=== PATIENT | female | born 1935 | race Caucasian/White ===

== ENCOUNTER 2016-11-06 10:23 | Observation (INO) ==
[2016-11-06] MEDS ORDERED: Ondansetron 4 MG/2 ML VIAL IVP PRN (12:56)
[2016-11-06] MEDS ORDERED: Naloxone 0.4 MG/ML INJ IVP PRN (12:56)
--- NOTE | 2016-11-06 13:08 | Orthopedic History & Physical ---
Date of Encounter: 11/06/16 Time of Encounter: 13:06 Assessment and Plan (1) Fracture of neck of left humerus Current visit: Yes Status: Acute Patient's xrays reviewed, discussed with : Moderately displaced oblique fracture through the surgical neck of the left humerus. Severe degenerative change at the left glenohumeral joint. Unchanged nonspecific elevation of the right hemidiaphragm, with mild bibasilar atelectasis. Because of her displaced fracture and significant arthritis, along with her continued pain and immobility, surgical optimization recommended. Plan for Left Total Shoulder Replacement, reverse ball and socket with on 06/26. Pain control, DVT prophylaxis. Placed in sling, with no ROM of shoulder. Encouraged gentle hand and wrist movement for swelling management. ICE and elevate. Hospitalist and cardiac consultation for pre-operative optimization. Qualifiers: Encounter type: initial encounter Fracture type: closed Qualified Code(s) : S42.212A - Unspecified displaced fracture of surgical neck of left humerus, initial encounter for closed fracture (2) HTN (hypertension) Current visit: Yes Status: Chronic Qualifiers: Hypertension type: essential hypertension Qualified Code(s): I10 - Essential (primary) hypertension (3) DMII (diabetes mellitus, type 2) Current visit: Yes Status: Chronic Qualifiers: Diabetes mellitus complication status: with unspecified complications Diabetes mellitus emt intermediate insulin use: unspecified emt intermediate insulin use status Qualified Code(s): E11.8 - Type 2 diabetes mellitus with unspecified complications (4) CAD (coronary artery disease) Current visit: Yes Status: Chronic Qualifiers: Coronary Disease-Associated Artery/Lesion type: unspecified vessel or lesion type [place] vs. transplanted heart: unspecified whether [place] or transplanted heart Associated angina: angina presence unspecified Qualified Code(s): I25.10 - Atherosclerotic heart disease of [place] coronary artery without angina pectoris (5) History of heart bypass surgery Current visit: Yes Status: Chronic Obtaining cardiac clearance prior to surgery. History of Present Illness Chief complaint: Fall HPI: Ms. Buenrostro is a 81 year old female, was seen in clinic c/o left arm pain after a fall on 11/03/16. Pt states she fell getting out of her chair. She was sleeping and thought she had children in the house. She jumped up to get the kids and she fell. She was brought to the hospital in the squad. Xrays showed a humerus fx. They gave her a sling. Has pain and bruising. Limited ROM at shoulder. H/o left shoulder pain and limited ROM. She has arthritis. H/o Right TSR years ago at [facility]. Medical history: significant cardiac history - history of bypass at [facility] 3 years ago. DMII, HTN, Asthma, Parox. A.fib, CAD Past Med Surg Social Fam HX - Past Medical History Medical history: diabetes, hyperlipidemia, hypertension, thyroid disease Psychiatric history: no psych history - Past Surgical History Surgical History: coronary bypass (CABG) - Social History Smoking Status: Never smoker Smokeless Tobacco Status: No Alcohol use: rarely Drug use: none - Family History Son Hx Family Endocrine Disorder: Yes Daughter Hx Family Cancer: Yes Medications and Allergies HYDROcodone/Acet 5/325 mg [[place] 5-325 mg] 1 tab PO Q4H PRN #30 tab 11/03/16 [Rx ] Ondansetron ODT [Zofran ODT] 4 mg PO Q4HR #30 tab.rapdis 11/03/16 [Rx] Allergies No Known Allergies Allergy (Verified 11/03/16 18:57) All Systems Reviewed: A 10-system review of systems was performed and is negative for pertinent findings except as documented above in the HPI. Physical Exam - Shoulder left Appearance shoulder: ecchymosis, swelling Effusion grade shoulder exam: No Tenderness w/ palpation shoulder: anterior, posterior, superior Pain with motion: Yes ROM: abduction: abnormal ROM: forward flexion: abnormal ROM: extension: abnormal ROM: adduction: abnormal ROM: internal rotation: abnormal ROM: external rotation: abnormal Results - Labs Labs: Abnormal lab results POC Glucose 227 (58-89) H 11/06/16 12:35 All other labs normal. - Diagnostic results Shoulder x-ray: report reviewed, image reviewed
--- NOTE | 2016-11-06 14:24 | Internal Medicine Consult Note ---
Date of Encounter: 11/06/16 Time of Encounter: 14:20 - Assessment and Plan (1) Fracture of neck of left humerus Current Visit: Yes Status: Acute Assessment and plan: possible surgery on thrusday. management as per ortho. she has a moderate cardio- pulm risk for an intermediate risk procedure given her extensive cardiac history and her other co morbids, pending cardio consultation for any further recommendation. will follow the patient along with you, thank you for consulting hospitalist service. Qualifiers: Encounter type: initial encounter Fracture type: closed Qualified Code(s) : S42.212A - Unspecified displaced fracture of surgical neck of left humerus, initial encounter for closed fracture (2) Atrial fibrillation Current Visit: Yes Status: Acute Assessment and plan: will continue home meds, she says that she is not in any blood thinners. 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 She is not in RVR at this time Qualifiers: Atrial fibrillation type: paroxysmal Qualified Code(s): I48.0 - Paroxysmal atrial fibrillation (3) DMII (diabetes mellitus, type 2) Current Visit: Yes Status: Chronic Assessment and plan: she takes 10 units of Lantus at night and metformin during the day. Will hold the metformin at this time, continue nighttime Lantus and will continue sliding scale Humalog. Monitor fingersticks every 6. 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 Qualifiers: Hypertension type: essential hypertension Qualified Code(s): I10 - Essential (primary) hypertension (5) CAD (coronary artery disease) Current Visit: Yes Status: Chronic Assessment and plan: History of bypass surgery at [facility] 3 years ago. Follows with cardiology at the same place. Denies any chest pain or shortness of breath, cardiology has been consulted. follow recommendations. Qualifiers: Coronary Disease-Associated Artery/Lesion type: unspecified vessel or lesion type [place] vs. transplanted heart: unspecified whether [place] or transplanted heart Associated angina: angina presence unspecified Qualified Code(s): I25.10 - Atherosclerotic heart disease of [place] coronary artery without angina pectoris (6) History of heart bypass surgery Current Visit: Yes Status: Chronic Internal Medicine - CN: HPI - Data of Consult Patient: new to practice Requesting Physician: Jae Randolph MD - Consult Narrative History of present illness: Ms. Buenrostro is a 81 year old female was seen in clinic c/o left arm pain after a fall on 11/03/16. Pt states she fell getting out of her chair. She was sleeping and thought she had children in the house. She jumped up to get the kids and she fell. She was brought to the hospital in the squad. Xrays showed a humerus fx. They gave her a sling. Has pain and bruising. Limited ROM at shoulder. H/o left shoulder pain and limited ROM. She has arthritis. H/o Right TSR years ago at [facility]. Medical history: significant cardiac history - history of bypass at [facility] 3 years ago. DMII, HTN, Parox. A.fib, CAD. Past Med Surg Social Fam HX - Past Medical History Medical history: diabetes, hyperlipidemia, hypertension, thyroid disease Psychiatric history: no psych history - Past Surgical History Surgical History: coronary bypass (CABG) - Social History Smoking Status: Never smoker Smokeless Tobacco Status: No Alcohol use: rarely Drug use: none - Family History Son Hx Family Endocrine Disorder: Yes Daughter Hx Family Cancer: Yes - Constitutional Constitutional: as per HPI - EENT Eyes: as per HPI Ears: as per HPI Nose, mouth and throat: as per HPI - Breasts Breasts: as per HPI - Cardiovascular Cardiovascular ROS IM: as per HPI - Gastrointestinal Gastrointestinal: as per HPI Internal Medicine - CN: Meds Allergies No Known Allergies Allergy (Verified 11/03/16 18:57) Internal Medicine - CN: Exam - Constitutional Vitals: Temp Pulse Resp BP Pulse Ox 97.8 F 90 16 118/70 93 11/06/16 13:51 11/06/16 13:51 11/06/16 13:51 11/06/16 13:51 11/06/16 13:51 General appearance IM: Present: A&O X 3, no acute distress Exam: neck- supple chest- b/l clear, no added sounds CVS-s1 and s2, no mr//g abd-soft, non tender, bs are present ext- no edema, left arm on sling, able to move her fingers, sensation intact, ROM decreased. Internal Medicine - CN: Reslt - Impressions Impressions Chest X-Ray 11/06/16 12:20 IMPRESSION: No acute abnormality. Stable chronic right hemidiaphragm elevation. D/ / 11/06/2016 13:38:28 Nicolas Almanza MD / Bailey Hartman Interpreting Provider: Nicolas Almanza MD Consult Discharge Plan - Plan Referrals: Bashir Browne MD [Primary Care Provider] -
[2016-11-06 15:04] LABS: Basophils # 0.1 K/mcL (0.0-0.2); Basophils % 0.4 %; Eosinophils % 0.2 %; Hematocrit 29.6 % (35.3-44.9); Hemoglobin 9.2 g/dL (11.5-15.4); Immature Granulocytes % 0.8 % (0-4); Lymphocytes # 1.1 K/mcL (0.6-4.6); Lymphocytes % 6.1 %; Mean Corpuscular HGB Conc 31.1 g/dL (31.6-35.5); Mean Corpuscular Hemoglobin 26.5 pg (28.0-33.3); Mean Corpuscular Volume 85.3 fL (83.0-100.0); Mean Platelet Volume 10.8 fL (9.4-12.4); Monocytes # 1.1 K/mcL (0.0-1.3); Monocytes % 5.9 %; Neutrophils # 15.6 K/mcL (1.6-8.9); Platelet Count 425 K/mcL (140-400); Red Blood Count 3.47 M/mcL (3.82-4.97); Red Cell Distribution Width 15.9 % (11.5-14.5); Segmented Neutrophils % 86.6 %
[2016-11-06] MEDS: 0.9 % Sodium Chloride 1,000 ML IVC SCH (15:04)
[2016-11-06 15:09] LABS: INR 1.1; Prothrombin Time 12.2 Seconds (9.4-12.1)
[2016-11-06 15:19] LABS: Calcium 9.5 mg/dL (8.6-10.8)
[2016-11-06] MEDS ORDERED: *HR* Dextrose 50 % in Water (Syg) 50 ML SYRINGE IVP PRN (17:02)
[2016-11-06] MEDS ORDERED: D5% in Water 1,000 ML IVC PRN (17:02)
[2016-11-06] MEDS ORDERED: Dextrose Gel 15 GM PO PRN ×2 (17:02)
[2016-11-06 17:07] LABS: Bilirubin,Urine Negative (Negative); Blood,Urine Trace (Negative); Clarity,Urine Cloudy (Clear); Color,Urine Yellow (Yellow); Glucose,Urine (UA) 250 mg/dL (Normal); Ketones,Urine Trace mg/dL (Negative); Leukocyte Esterase,Urine Negative (Negative); Nitrite,Urine Negative (Negative); PH,Urine 5.5 pH Units (5.0-8.0); Protein,Urine 100 mg/dL (Neg-Trace); Specific Gravity,Urine 1.018 (1.010-1.025); Urobilinogen,Urine Normal (Normal)
[2016-11-06 17:10] LABS: Hyaline Casts,Urine None Seen per lpf (None-Few); RBC,Urine 0-3 per hpf (0-3); Squamous Epithelial Cell,Urine Moderate per lpf (None-Few); WBC,Urine 0-3 per hpf (0-3)
[2016-11-06 17:20] LABS: Yeast,Urine Moderate per hpf (None Seen)
[2016-11-06] MEDS: Insulin LISPRO 300 UNITS/3 ML VIAL SQ SCH ×2 (17:20→21:40)
[2016-11-06 17:21] LABS: Bacteria,Urine Few per hpf (None-Few); Mucus,Urine Few (Few)
[2016-11-06] MEDS: Insulin DETEMIR 100 UNIT/ML X5UNITS SQ SCH (21:41)
[2016-11-06] MEDS: *HR* OxyCODONE Immed Rel 5 MG TABLET PO PRN (22:03)
[2016-11-07] MEDS: 0.9 % Sodium Chloride 1,000 ML IVC SCH ×2 (04:40→21:38)
[2016-11-07 05:43] LABS: Hematocrit 29.6 % (35.3-44.9); Hemoglobin 9.1 g/dL (11.5-15.4)
--- NOTE | 2016-11-07 07:47 | Orthopedics Progress Note ---
Date of Encounter: 11/07/16 Time of Encounter: 07:45 Subjective Interval history: Patient with a significant displaced left proximal humerus fracture. Patient resting comfortably. Awaiting medical clearance. Plan is for a left total shoulder replacement. X-rays reviewed and show significant arthritic changes with a displaced fracture of the proximal humerus. We reviewed the risks and benefits as well as recovery. All questions were answered. Objective Vital signs: Vital Signs Temp Pulse Resp BP Pulse Ox 11/07/16 03:20 98.1 F 92 14 146/65 91 11/07/16 00:04 98.4 F 74 14 168/74 92 11/06/16 19:19 98.0 F 88 14 170/91 95 11/06/16 15:45 98.0 F 90 14 120/73 93 11/06/16 13:51 97.8 F 90 16 118/70 93 Intake and Output 11/06/16 11/06/16 11/07/16 15:59 23:59 07:59 Intake Total 590 / 590 360 / 360 1720 / 1720 Output Total 0 / 0 425 / 425 0 / 0 Balance 590 / 590 -65 / -65 1720 / 1720 Intake: IV Fluids 1000 / 1000 0.9 % Sodium Chloride 1, 1000 / 1000 000 ML @ 75 mls/hr IVC . [id number] ARABELLA Rx#: [id number] Oral 590 / 590 360 / 360 720 / 720 Output: Urine 0 / 0 425 / 425 0 / 0 Other: Meal water pitcher Dinner Percent of Meal Consumed 100% 75% Weight 58.2 kg 58.2 kg Blood Glucose* 227 158 Patient Weight 11/07/16 23:59 Weight 58.2 kg - Labs CBC & BMP: 11/07/16 05:30 11/06/16 14:45 Labs: Abnormal lab results WBC 18.0 K/mcL (4.3-11.1) H 11/06/16 14:45 RBC 3.47 M/mcL (3.82-4.97) L 11/06/16 14:45 Hgb 9.1 g/dL (11.5-15.4) L 11/07/16 05:30 Hct 29.6 % (35.3-44.9) L 11/07/16 05:30 MCH 26.5 pg (28.0-33.3) L 11/06/16 14:45 MCHC 31.1 g/dL (31.6-35.5) L 11/06/16 14:45 RDW 15.9 % (11.5-14.5) H 11/06/16 14:45 Plt Count 425 K/mcL (140-400) H 11/06/16 14:45 Neutrophils # 15.6 K/mcL (1.6-8.9) H 11/06/16 14:45 PT 12.2 Seconds (9.4-12.1) H 11/06/16 14:45 Sodium 132 mEq/L (136-145) L 11/06/16 14:45 Chloride 92 mEq/L (98-109) L 11/06/16 14:45 Carbon Dioxide 30 mEq/L (19-29) H 11/06/16 14:45 BUN 21 mg/dL (7-20) H 11/06/16 14:45 Creatinine 1.54 mg/dL (0.57-1.11) H 11/06/16 14:45 Est GFR ( Amer) 39 (> 60) L 11/06/16 14:45 Est GFR (Non-Af Amer) 32 (> 60) L 11/06/16 14:45 Glucose 341 mg/dL (70-99) H 11/06/16 14:45 POC Glucose 158 (58-89) H 11/06/16 21:31 Urine Clarity Cloudy (Clear) A 11/06/16 16:54 Urine Protein 100 mg/dL (Neg-Trace) H 11/06/16 16:54 Urine Glucose (UA) 250 mg/dL (Normal) H 11/06/16 16:54 Urine Ketones Trace mg/dL (Negative) H 11/06/16 16:54 Urine Blood Trace (Negative) H 11/06/16 16:54 Ur Squamous Epith Cells Moderate per lpf (None-Few) H 11/06/16 16:54 Urine Yeast Moderate per hpf (None Seen) H 11/06/16 16:54 Antibody Screen POSITIVE A 11/06/16 14:45 Consult Discharge Plan - Plan Referrals: Bashir Browne MD [Primary Care Provider] -
[2016-11-07] MEDS ORDERED: Budesonide/Formoterol 160/4.5 MDI IH PRN (07:58)
[2016-11-07] MEDS ORDERED: Nitroglycerin 0.4 MG TAB.SUBL SL PRN (07:58)
[2016-11-07] MEDS ORDERED: NON-FORMULARY MEDICATION 1 EACH EACH (Acetaminophen/Diphenhydramine [Acetaminophen Pm Capl PO PRN (07:58)
[2016-11-07] MEDS ORDERED: CloNIDine Patch 0.1 MG PATCH (WEEKLY) TD SCH (08:00)
[2016-11-07] MEDS: Insulin LISPRO 300 UNITS/3 ML VIAL SQ SCH ×4 (08:04→21:28)
[2016-11-07] MEDS ORDERED: Acetaminophen 325 MG TABLET PO PRN (08:10)
[2016-11-07] MEDS: Metoprolol 100 MG TABLET PO SCH ×2 (08:22→21:40)
[2016-11-07] MEDS: Bumetanide 1 MG TABLET PO SCH (08:22)
[2016-11-07] MEDS: Lisinopril 20 MG TABLET PO SCH (08:22)
[2016-11-07] MEDS: Aspirin Enteric Coated 81 MG Tablet PO SCH (08:23)
[2016-11-07] MEDS: Gabapentin 300 MG CAPSULE PO SCH ×3 (08:23→21:39)
[2016-11-07 08:51] LABS: Basophils # 0.1 K/mcL (0.0-0.2); Basophils % 0.3 %; Eosinophils # 0.2 K/mcL (0.0-0.6); Eosinophils % 1.2 %; Immature Granulocytes % 0.5 % (0-4); Lymphocytes # 1.3 K/mcL (0.6-4.6); Lymphocytes % 8.3 %; Mean Corpuscular HGB Conc 30.4 g/dL (31.6-35.5); Mean Corpuscular Hemoglobin 26.2 pg (28.0-33.3); Mean Corpuscular Volume 86.3 fL (83.0-100.0); Mean Platelet Volume 11.1 fL (9.4-12.4); Monocytes # 1.4 K/mcL (0.0-1.3); Monocytes % 9.2 %; Neutrophils # 12.1 K/mcL (1.6-8.9); Platelet Count 464 K/mcL (140-400); Red Blood Count 3.51 M/mcL (3.82-4.97); Red Cell Distribution Width 16.1 % (11.5-14.5); Segmented Neutrophils % 80.5 %
[2016-11-07 09:01] LABS: BUN/Creatinine Ratio 18 (6-26); Blood Urea Nitrogen 19 mg/dL (7-20); Calcium 9.7 mg/dL (8.6-10.8); Carbon Dioxide 30 mEq/L (19-29); Chloride 99 mEq/L (98-109); Glucose 97 mg/dL (70-99); Osmolality,Calculated 286 (280-300); Sodium 137 mEq/L (136-145); eGFR For African Americans > 60 (> 60); eGFR For Non-African Americans 50 (> 60)
--- NOTE | 2016-11-07 09:44 | Cardiology Consult Note ---
Date of Encounter: 11/07/16 Time of Encounter: 09:30 Assessment and Plan (1) Pre-operative cardiovascular examination Current Visit: Yes Status: Acute Plan for left total shoulder replacement 11/08/[address] Randolph under general anesthesia. Hx of CABG 11/[address] 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 Denies additional testing including TTE, stress, LHC since bypass. Denies symptoms including chest pain or discomfort, dyspnea, or activity intolerance. She is fairly active, cares for self, lives at home alone. Utilizes walker. ECG reviewed, ST 110, no acute ischemic changes noted. Recommend obtaining echocardiogram to evaluate structure and function; if no significant abnormalities described, she is an acceptable risk candidate from cardiovascular standpoint to proceed with moderate risk surgery. Recommend continuation of asa and betablocker if able. Will further discuss and review with Dr. Bacon. (2) Fracture of neck of left humerus Current Visit: Yes Status: Acute Plan for left total shoulder in AM with Dr. Randolph. Qualifiers: Encounter type: initial encounter Fracture type: closed Qualified Code(s) : S42.212A - Unspecified displaced fracture of surgical neck of left humerus, initial encounter for closed fracture (3) CAD (coronary artery disease) Current Visit: Yes Status: Chronic Hx of 3v CABG (11/2013) at [facility]. GROVES-LAD, SVG-Diag, SVG-Om. Qualifiers: Coronary Disease-Associated Artery/Lesion type: [place] artery [place] vs. transplanted heart: [place] heart Associated angina: without angina Qualified Code(s): I25.10 - Atherosclerotic heart disease of [place] coronary artery without angina pectoris Discussion w patient/family: The assessment and plan as outlined above was discussed with the patient and/or family members who expressed understanding and agreement. All questions were answered. Thank you for involving us in the care of your patient. Please call with any questions. The patient will be discussed and reviewed with Dr. Bacon; changes to be made accordingly. History of Present Illness Consult date: 11/06/16 Requesting physician: Sameera Martell Consult reason: pre-op Chief complaint: fall, left shoulder fx History of present illness: Ms. Buenrostro is a 81 year old female with PMH significant for CAD s/p CABG (2013), post-operative PAF, hypothyroidism, HTN, and HLD who presented to [facility] ED after mechanical fall at home yesterday. Patient states she fell asleep in recliner, thought her grandchildren were there and stood up but tripped over house slipper and fell on left side resulting in significant proximal humerus fracture. Routinely follows with [facility] as outpatient, Dr. Varela. Past Med Surg Social Fam HX - Past Medical History Medical history: atrial fibrillation (post-operative PAF. ), coronary artery disease, diabetes, hyperlipidemia, hypertension, thyroid disease Psychiatric history: no psych history - Past Surgical History Surgical History: coronary bypass (CABG) - Social History Smoking Status: Never smoker Smokeless Tobacco Status: No Alcohol use: rarely Drug use: none Current living situation: Home - Independent Activity Level: Independent ambulation, Uses cane/walker - Family History Son Hx Family Endocrine Disorder: Yes Daughter Hx Family Cancer: Yes Medications and Allergies Acetaminophen/Diphenhydramine [Acetaminophen Pm Caplet] 2 each PO HS PRN [History] Albuterol Sulfate [Albuterol Inhaler] 2 puff IH Q4H PRN 11/06/16 [History] Ammonium Lactate [Tammy-Hydrolac] 1 appl TP BID PRN 11/06/16 [History] Aspirin Enteric Coated [Aspirin EC] 81 mg PO DAILY 11/06/16 [History] Bumetanide [Bumex] 1 mg PO DAILY 11/06/16 [History] Celecoxib [Celebrex] 200 mg PO DAILY 11/06/16 [History] CloNIDine [Catapres-Tts 1] 1 each TD QWEEK 11/06/16 [History] DULoxetine [Cymbalta] 40 mg PO DAILY 11/06/16 [History] Felodipine [Felodipine ER] 10 mg PO DAILY 11/06/16 [History] Ferrous Sulfate 325 mg PO BIDWM 11/06/16 [History] Fluticasone/Salmeterol [Advair 250-50 Diskus] 1 each IH BID PRN 11/06/16 [ History] Gabapentin [Neurontin] 600 mg PO TID 11/06/16 [History] HYDROcodone/Acet 5/325 mg [[place] 5-325 mg] 1 tab PO Q4H PRN 11/06/16 [History] Insulin Glargine,Hum.rec.anlog [Lantus Solostar] 10 unit SQ HS 11/06/16 [History ] Levothyroxine [Levothyroxine Sodium] 137 mcg PO DAILY@0630 11/06/16 [History] Lisinopril [Zestril] 20 mg PO DAILY 11/06/16 [History] Metoprolol [Lopressor] 100 mg PO BID 11/06/16 [History] Montelukast [Singulair] 10 mg PO DAILY 11/06/16 [History] Nitroglycerin [Nitrostat] 0.4 mg SL Q5M PRN 11/06/16 [History] Ondansetron ODT [Zofran ODT] 4 mg SL Q4HR PRN 11/06/16 [History] Pantoprazole Sodium [Protonix] 20 mg PO DAILY 11/06/16 [History] Rosuvastatin [Crestor] 40 mg PO HS 11/06/16 [History] metFORMIN [Glucophage] 850 mg PO BIDWM 11/06/16 [History] Allergies No Known Allergies Allergy (Verified 11/03/16 18:57) All Systems Review: A 10-system review of systems was performed and is negative for pertinent findings except as documented above in the HPI. - Cardiovascular Cardiovascular: as per HPI - Musculoskeletal Musculoskeletal: other (as per HPI) Physical Examination Vital Signs, Last 4 Hours Temp Pulse Resp BP Pulse Ox 11/07/16 07:54 98.5 F 72 16 181/74 98 General: Conversant, No Apparent Distress HEENT: Atraumatic, Normocephaly, Other (mild ecchymosis to left orbit) Cardiac: Reg Rate and Rhythm (tachycardiac) Lungs: Normal Breath Sounds Neuro: Alert and responsive Abdomen: Soft Skin: No rashes noted on visualized skin Musculoskeletal: No Chest Wall Tenderness, Other (left shoulder pain/tenderness- -in sling. Large ecchymosis at site. ) Extremities: No Edema, Normal Pulses Results 11/07/16 05:30 11/07/16 05:30 Lab Results 11/06/16 11/06/16 11/06/16 14:45 14:45 14:45 WBC 18.0 H Hgb 9.2 L Hct 29.6 L Plt Count 425 H INR 1.1 Sodium 132 L Potassium 4.0 Chloride 92 L Carbon Dioxide 30 H BUN 21 H Creatinine 1.54 H Glucose 341 H Calcium 9.5 05/31/17 05/31/17 05:30 05:30 WBC 15.0 H Hgb 9.1 L Hct 29.6 L Plt Count 464 H INR Sodium 137 Potassium 4.0 Chloride 99 Carbon Dioxide 30 H BUN 19 Creatinine 1.06 Glucose 97 Calcium 9.7 Active Medications Acetaminophen (Tylenol) 650 mg PO HS PRN PRN Reason: Sleep Stop: 05/09/17 08:11 Albuterol Sulfate (Albuterol Inhaler) 2 puff IH Q4H PRN PRN Reason: Shortness Of Breath Stop: 05/09/17 07:59 Aspirin (Aspirin Ec) 81 mg PO DAILY [facility] Stop: 05/09/17 09:01 Last Admin: 11/07/16 08:23 Dose: 81 mg Budesonide/Formoterol Fumarate (Symbicort) 2 puff IH BID PRN PRN Reason: Shortness Of Breath Bumetanide (Bumex) 1 mg PO DAILY [facility] Stop: 05/09/17 09:01 Last Admin: 11/07/16 08:22 Dose: 1 mg Clonidine HCl (Catapres-Tts) 0.1 mg TD QWEEK [facility] Stop: 05/09/17 08:01 Last Admin: 11/07/16 10:18 Dose: 0.1 mg Dextrose/Water (Dextrose 50% (Syg)) 25 ml IVP AD PRN PRN Reason: Hypoglycemia Stop: 05/08/17 17:03 Diphenhydramine HCl (Benadryl) 25 mg PO HS PRN PRN Reason: Sleep Stop: 05/09/17 08:12 Docusate Sodium (Colace) 100 mg PO BID PRN PRN Reason: Constipation Stop: 05/08/17 12:57 Duloxetine HCl (Cymbalta) 40 mg PO DAILY [facility] Stop: 05/09/17 09:01 Last Admin: 11/07/16 10:18 Dose: 40 mg Ferrous Sulfate (Ferrous Sulfate) 325 mg PO BIDWM ARABELLA Stop: 05/09/17 08:01 Last Admin: 11/07/16 08:22 Dose: 325 mg Gabapentin (Neurontin) 600 mg PO TID ARABELLA Stop: 05/09/17 09:01 Last Admin: 11/07/16 08:23 Dose: 600 mg Glucagon (Glucagen) 1 mg IM ONCE PRN PRN Reason: Hypoglycemia Stop: 05/08/17 17:03 Glucose (Gluctose) 15 gm PO ONCE PRN PRN Reason: Hypoglycemia Stop: 05/08/17 17:03 Glucose (Gluctose) 30 gm PO ONCE PRN PRN Reason: Hypoglycemia Stop: 05/08/17 17:03 Hydralazine HCl (Hydralazine) 10 mg IVP Q6HR PRN PRN Reason: Hypertension Stop: 05/09/17 08:02 Last Admin: 11/07/16 08:22 Dose: 10 mg Sodium Chloride (0.9 % Sodium Chloride) 1,000 mls @ 75 mls/hr IVC .[id number] [facility] Stop: 05/08/17 12:46 Last Admin: 11/07/16 04:40 Dose: 75 mls/hr Dextrose (Dextrose 5%) 1,000 mls @ 100 mls/hr IVC .Q10H PRN PRN Reason: HYPOGLYCEMIA Stop: 05/08/17 17:03 Insulin Detemir (Levemir) 10 unit SQ HS [facility] Stop: 05/08/17 21:01 Last Admin: 11/06/16 21:41 Dose: 10 unit Insulin Human Lispro (Humalog) 0 units SQ TIDAC [facility] PRN Reason: Protocol Stop: 05/08/17 17:16 Last Admin: 11/07/16 11:12 Dose: 6 units Insulin Human Lispro (Humalog) 0 units SQ [facility] PRN Reason: Protocol Stop: 05/08/17 21:01 Last Admin: 11/06/16 21:40 Dose: Not Given Levothyroxine Sodium (Levothyroxine Sodium) 137 mcg PO DAILY@0630 [facility] Stop: 05/10/17 06:31 Lisinopril (Zestril) 20 mg PO DAILY [facility] PRN Reason: Protocol Stop: 05/09/17 09:01 Last Admin: 11/07/16 08:22 Dose: 20 mg Metoprolol Tartrate (Lopressor) 100 mg PO BID [facility] Stop: 05/09/17 09:01 Last Admin: 11/07/16 08:22 Dose: 100 mg Montelukast Sodium (Singulair) 10 mg PO DAILY [facility] Stop: 05/09/17 09:01 Last Admin: 11/07/16 08:22 Dose: 10 mg Naloxone HCl (Narcan) 0.4 mg IVP Q2MIN PRN PRN Reason: Opioid Reversal Stop: 05/08/17 12:57 Nitroglycerin (Nitroglycerin) 0.4 mg SL Q5M PRN PRN Reason: Chest Pain Stop: 05/09/17 07:59 Omeprazole (Prilosec) 20 mg PO DAILY [facility]ABE[facility]A Stop: 05/09/17 09:01 Last Admin: 11/07/16 08:23 Dose: 20 mg Ondansetron HCl (Zofran) 4 mg IVP Q8HR PRN PRN Reason: Nausea And Vomiting Stop: 05/08/17 12:57 Oxycodone HCl (Roxicodone) 5 mg PO Q6HR PRN PRN Reason: Pain Stop: 05/08/17 12:19 Last Admin: 11/07/16 11:11 Dose: 5 mg Pharmacy Profile Note (Patient Taking Own Medication) 0 each PO DAILY ARABELLA Stop: 05/09/17 09:01 Last Admin: 11/07/16 08:23 Dose: Not Given Rosuvastatin Calcium (Crestor) 40 mg PO HS ARABELLA Stop: 05/09/17 21:01 - Imaging and Cardiology Echo: pending Other Results: Tele: HR 80s. SR Consult Discharge Plan - Plan Referrals: Bashir Browne MD [Primary Care Provider] -
[2016-11-07] MEDS: *HR* OxyCODONE Immed Rel 5 MG TABLET PO PRN ×2 (11:11→22:59)
--- NOTE | 2016-11-07 13:44 | Internal Med Progress Note ---
Date of Encounter: 11/07/16 Time of Encounter: 10:00 - Assessment and plan (1) Fracture of neck of left humerus Current Visit: Yes Status: Acute Assessment and plan: Due to mechanical fall, patient denies loss of consciousness. Plan for surgery tomorrow per orthopedic. - Cardiology consult saw patient, preoperative evaluation appreciated and the recommendation will be followed - Continue pain medication for pain Qualifiers: Encounter type: initial encounter Fracture type: closed Qualified Code(s) : S42.212A - Unspecified displaced fracture of surgical neck of left humerus, initial encounter for closed fracture (2) DMII (diabetes mellitus, type 2) Current Visit: Yes Status: Chronic Assessment and plan: Cover patient with basal and the sliding-scale insulin. Follow-up glucose level. Qualifiers: Diabetes mellitus complication status: with unspecified complications Diabetes mellitus lobsterman insulin use: with custodial use Qualified Code(s) : E11.8 - Type 2 diabetes mellitus with unspecified complications; Z79.4 - lobsterman (current) use of insulin (3) HTN (hypertension) Current Visit: Yes Status: Chronic Assessment and plan: Continue home medication. Follow-up of BP. Qualifiers: Hypertension type: essential hypertension Qualified Code(s): I10 - Essential (primary) hypertension (4) CAD (coronary artery disease) Current Visit: Yes Status: Chronic Assessment and plan: Had CABG. No complaint of chest pain. We will continue aspirin, beta gabe, JANES inhibitor,and statin. Qualifiers: Coronary Disease-Associated Artery/Lesion type: [place] artery [place] vs. transplanted heart: [place] heart Associated angina: without angina Qualified Code(s): I25.10 - Atherosclerotic heart disease of [place] coronary artery without angina pectoris (5) DVT prophylaxis Current Visit: Yes Status: Acute Assessment and plan: EPCD now, heparin subcutaneously after surgery. (6) Acute kidney injury Current Visit: Yes Status: Acute Assessment and plan: Creatinine 1.54 on admission. Improved to 1.06 after hydration. Continue low rate IV fluid. Follow-up renal function (7) Leukocytosis Current Visit: Yes Status: Acute Assessment and plan: Most likely reactive. Patient has no fever, no signs of infection. Qualifiers: Leukocytosis type: unspecified Qualified Code(s): D72.829 - Elevated white blood cell count, unspecified - Time Spent With Patient 25 - 35 minutes - Subjective Interval history: Patient is a 81-year-old female admitted for left humerus fracture. Her past medical history is significant for CAD S/P CABG, DM, hypertension. Patient was seen and examined. She is awake alert oriented 3. Complaining left arm pain, need pain medication. Vitals are stable. Cardiology consult appreciated. Will have echocardiogram. Plan for surgery tomorrow per orthopedic. - Constitutional Vitals: Temp Pulse Resp BP Pulse Ox 98.6 F 87 16 126/70 94 11/07/16 10:59 11/07/16 10:59 11/07/16 10:59 11/07/16 10:59 11/07/16 10:59 General appearance: Present: A&O X 3, no acute distress, answers questions appropriately - Head Head exam: Present: atraumatic, normocephalic - Eye Eye exam: Present: PERRL, conjuntiva pink, sclera anicteric Pupils: Present: PERRL - Neck Neck exam general surgery: Present: supple, trachea midline. Absent: lymphadenopathy - Respiratory Respiratory exam: Present: CTAB. Absent: accessory muscle use, rales, rhonchi, wheezes - Cardiovascular Cardiovascular exam: Present: RRR, +S1, +S2. Absent: diastolic murmur, gallop, rubs, systolic murmur - GI/Abdominal GI/Abdominal exam: Present: normal bowel sounds, soft, no peritoneal signs. Absent: distended, tenderness - Extremities Exam Extremities exam: Present: warm, radial pulses palpable and symetrical. Absent : calf tenderness, cyanotic, pedal edema Additional comments: Left arm ROM limited due to pain - Neurological Exam Neurological exam: Present: CN II-XII intact, oriented X3, no focal deficits. Absent: pronater drift, facial droop, speech deficit - Skin Skin exam: Present: dry, intact Internal Medicine: Result - Labs CBC & Chem 7: 11/07/16 05:30 11/07/16 05:30 Labs: Short CBC 11/06/16 11/07/16 Range/Units 14:45 05:30 WBC 18.0 H 15.0 H (4.3-11.1) K/mcL Hgb 9.2 L 9.1 L (11.5-15.4) g/dL Hct 29.6 L 29.6 L (35.3-44.9) % Plt Count 425 H 464 H (140-400) K/mcL Neutrophils # 15.6 H 12.1 H (1.6-8.9) K/mcL BMP 11/06/16 11/07/16 14:45 05:30 Sodium 132 L 137 Potassium 4.0 4.0 Chloride 92 L 99 Carbon Dioxide 30 H 30 H BUN 21 H 19 Creatinine 1.54 H 1.06 Glucose 341 H 97 Calcium 9.5 9.7 Urine 11/06/16 Range/Units 16:54 Urine Color Yellow (Yellow) Urine Clarity Cloudy A (Clear) Urine pH 5.5 (5.0-8.0) pH Units Ur Specific [place] 1.018 (1.010-1.025) Urine Protein 100 H (Neg-Trace) mg/dL Urine Glucose (UA) 250 H (Normal) mg/dL - ABG Interpretation ABG results: PT/INR, D-dimer PT 12.2 Seconds (9.4-12.1) H 11/06/16 14:45 - EKG Interpretation EKG Interpreted by Myself: Yes EKG shows normal: sinus rhythm Rate: tachycardia - Impressions Impressions Chest X-Ray 11/06/16 12:20 IMPRESSION: No acute abnormality. Stable chronic right hemidiaphragm elevation. D/ / 11/06/2016 13:38:28 Nicolas Almanza MD / Bailey Hartman Interpreting Provider: Nicolas Almanza MD - VTE Documentation of Mechanical Device: Venous foot pump, device Consult Discharge Plan - Plan Referrals: Bashir Browne MD [Primary Care Provider] -
--- NOTE | 2016-11-07 14:40 | Event Note ---
Date of Encounter: 11/07/16 Time of Encounter: 14:37 - Cardiology Event Note Echocardiogram reviewed with LVEF 60%, hypokinesis of basal inferior wall, mild asymetric LV basal septal hypertrophy, no evidence of LVOT obstruction, mild left ventricular diastolic dysfunction, severely dilated left atrium, mild mitral regurgitaation, mild-moderate pulmonary hypertension, basal inferior wall hypokinetic, all other [place] showed normal motion. Per review of previous cardiology records, cardiology will sign off. No need for further cardiac testing, see cardiology consultation. Recommend watching fluid status carefully due to mild diastolic dysfunction.
--- NOTE | 2016-11-07 15:55 | Electrocardiograph Report ---
[address] [place] [address] Test Date: 2016-11-07 Pat Name: Gregoria Buenrostro Department: 115 Room: 3A14 Gender: F Licensed Clinician: GOMEZ : 1935 Requested By: Sameera Martell Order Number: [id number] Reading MD: Dale Muller MD Measurements Intervals [place] Rate: 111 P: 81 MS: 148 QRS: -9 QRSD: 106 T: 147 QT: 347 QTc: 413 Interpretive Statements SINUS TACHYCARDIA WITH OCCASIONAL VENTRICULAR PREMATURE COMPLEXES LATERAL ISCHEMIA Electronically Signed On 11-07-2016 15:54:30 EDT by Dale Muller MD
--- NOTE | 2016-11-07 19:04 | Anesthesia Evaluation PreOp ---
Date of Encounter: 11/07/16 Time of Encounter: 19:41 - Past History Planned Operation: L total shoulder Cardiac History: GA (prior to CABG), HTN, Hyperlipidemia, Arrhythmia (post- operative paroxysmal atrial fibrillation), Cardiac Surgery (CABGx3 in 2014) Pulmonary History: Denies Any Significant HX ASSISTANT ACCOUNTING MANAGER History: Denies Any Significant HX Other Medical History: Diabetes Type II (uses lantus and oral medications), Thyroid Anesthesia History: No Prior Anesthetic Complications, Past Anesthesia (CABG, knee surgery, R shoulder surgery, multiple C-S) Alcohol Use: rarely Drug use: none Medications and Allergies Acetaminophen/Diphenhydramine [Acetaminophen Pm Caplet] 2 each PO HS PRN [History] Albuterol Sulfate [Albuterol Inhaler] 2 puff IH Q4H PRN 11/06/16 [History] Ammonium Lactate [Tammy-Hydrolac] 1 appl TP BID PRN 11/06/16 [History] Aspirin Enteric Coated [Aspirin EC] 81 mg PO DAILY 11/06/16 [History] Bumetanide [Bumex] 1 mg PO DAILY 11/06/16 [History] Celecoxib [Celebrex] 200 mg PO DAILY 11/06/16 [History] CloNIDine [Catapres-Tts 1] 1 each TD QWEEK 11/06/16 [History] DULoxetine [Cymbalta] 40 mg PO DAILY 11/06/16 [History] Felodipine [Felodipine ER] 10 mg PO DAILY 11/06/16 [History] Ferrous Sulfate 325 mg PO BIDWM 11/06/16 [History] Fluticasone/Salmeterol [Advair 250-50 Diskus] 1 each IH BID PRN 11/06/16 [ History] Gabapentin [Neurontin] 600 mg PO TID 11/06/16 [History] HYDROcodone/Acet 5/325 mg [[place] 5-325 mg] 1 tab PO Q4H PRN 11/06/16 [History] Insulin Glargine,Hum.rec.anlog [Lantus Solostar] 10 unit SQ HS 11/06/16 [History ] Levothyroxine [Levothyroxine Sodium] 137 mcg PO DAILY@0630 11/06/16 [History] Lisinopril [Zestril] 20 mg PO DAILY 11/06/16 [History] Metoprolol [Lopressor] 100 mg PO BID 11/06/16 [History] Montelukast [Singulair] 10 mg PO DAILY 11/06/16 [History] Nitroglycerin [Nitrostat] 0.4 mg SL Q5M PRN 11/06/16 [History] Ondansetron ODT [Zofran ODT] 4 mg SL Q4HR PRN 11/06/16 [History] Pantoprazole Sodium [Protonix] 20 mg PO DAILY 11/06/16 [History] Rosuvastatin [Crestor] 40 mg PO HS 11/06/16 [History] metFORMIN [Glucophage] 850 mg PO BIDWM 11/06/16 [History] Allergies No Known Allergies Allergy (Verified 11/03/16 18:57) - Meds/Allergy Pre-op Review Medications Reviewed: Yes Allergies Reviewed: Yes Beta Blockers on Current Med List: Yes Anesthesia Results - Labs 11/07/16 05:30 11/07/16 05:30 - Imaging EKG: report reviewed, image reviewed (ST with occ PVC's, lateral ischemia) Additional studies: 11-07-2016 TTE: LVEF 60%; hypokinesis of basal inferior wall mild asymmetric LV basal septal hypertrophy; no evidence of LVOT mild LV diastolic dysfunction normal RV size/function severely dilated LA mild MR mild-mod pulm htn Cardiology consult: If no significant findings on echo, then no further pre-op testing appears necessary given adequate functional capacity and lack of cardiac symptoms; Continue ASA/statin/BB/acei therapy. Anesthesia Exam Last Vital Signs Temp 98.0 F 11/07/16 15:56 Pulse 82 11/07/16 15:56 Resp 16 11/07/16 15:56 BP 144/91 11/07/16 15:56 Pulse Ox 94 11/07/16 15:56 Weight: 58 kg - HEENT Pupil (Motor): Pupils equal, EOMI Mallampati: III Teeth: Poor dentition Oral Opening: Greater than 3 - ASSISTANT ACCOUNTING MANAGER LOC: Oriented ASSISTANT ACCOUNTING MANAGER Motor: Normal RUE, Normal LUE, Normal RLE, Normal LLE, Normal Face - Cardiac Rhythm: Regular Murmur: None - Pulmonary Breath Sounds: bilateral Clear Respiratory Effort: Symmetrical Anesthesia Assess/Plan ASA Score: 3 Modified [place] Scale for Level of Consciousness: Cooperative, oriented, and tranquil Anesthetic Plan: General, Regional Monitoring Plan: Standard Monitors Recovery Plan: PACU
[2016-11-07] MEDS: Insulin DETEMIR 100 UNIT/ML X5UNITS SQ SCH (22:44)
[2016-11-08 06:19] LABS: Basophils # 0.1 K/mcL (0.0-0.2); Basophils % 0.6 %; Eosinophils # 0.4 K/mcL (0.0-0.6); Eosinophils % 3.3 %; Hematocrit 38.5 % (35.3-44.9); Immature Granulocytes % 0.8 % (0-4); Lymphocytes # 1.3 K/mcL (0.6-4.6); Lymphocytes % 10.5 %; Mean Corpuscular HGB Conc 30.4 g/dL (31.6-35.5); Mean Corpuscular Hemoglobin 25.9 pg (28.0-33.3); Mean Corpuscular Volume 85.4 fL (83.0-100.0); Mean Platelet Volume 10.2 fL (9.4-12.4); Monocytes # 1.3 K/mcL (0.0-1.3); Monocytes % 10.2 %; Neutrophils # 9.2 K/mcL (1.6-8.9); Platelet Count 488 K/mcL (140-400); Red Blood Count 4.51 M/mcL (3.82-4.97); Red Cell Distribution Width 15.9 % (11.5-14.5); Segmented Neutrophils % 74.6 %
[2016-11-08] MEDS: Insulin LISPRO 300 UNITS/3 ML VIAL SQ SCH ×2 (07:26→11:29)
[2016-11-08] MEDS: Bumetanide 1 MG TABLET PO SCH (07:27)
[2016-11-08] MEDS: Aspirin Enteric Coated 81 MG Tablet PO SCH (07:27)
[2016-11-08] MEDS: Lisinopril 20 MG TABLET PO SCH (07:28)
[2016-11-08] MEDS: Gabapentin 300 MG CAPSULE PO SCH ×2 (07:28→20:47)
[2016-11-08 07:33] LABS: Hemoglobin 11.7 g/dL (11.5-15.4)
--- NOTE | 2016-11-08 08:09 | Orthopedics Progress Note ---
Date of Encounter: 11/08/16 Time of Encounter: 08:08 Subjective Interval history: Patient seen this morning for left total shoulder replacement reverse ball and socket. We once again reviewed the risks benefits as well as recovery. Objective Vital signs: Vital Signs Temp Pulse Resp BP Pulse Ox 11/08/16 06:46 97.7 F 68 18 152/74 95 11/08/16 05:03 98.1 F 69 17 181/78 90 11/07/16 23:28 98.1 F 70 19 137/54 94 11/07/16 20:13 98.6 F 83 18 116/64 92 11/07/16 15:56 98.0 F 82 16 144/91 94 11/07/16 10:59 98.6 F 87 16 126/70 94 11/07/16 10:52 90 117/65 Intake and Output 11/07/16 11/08/16 11/08/16 23:59 07:59 15:59 Intake Total 1000 / 1000 Balance 1000 / 1000 Intake: IV Fluids 1000 / 1000 0.9 % Sodium Chloride 1, 1000 / 1000 000 ML @ 75 mls/hr IVC . [id number] ARABELLA Rx#: [id number] Other: # Voids 1 Blood Glucose* 175 62 - Labs CBC & BMP: 11/08/16 06:07 11/08/16 06:07 Labs: Abnormal lab results WBC 12.4 K/mcL (4.3-11.1) H 11/08/16 06:07 MCH 25.9 pg (28.0-33.3) L 11/08/16 06:07 MCHC 30.4 g/dL (31.6-35.5) L 11/08/16 06:07 RDW 15.9 % (11.5-14.5) H 11/08/16 06:07 Plt Count 488 K/mcL (140-400) H 11/08/16 06:07 Neutrophils # 9.2 K/mcL (1.6-8.9) H 11/08/16 06:07 PT 12.2 Seconds (9.4-12.1) H 11/06/16 14:45 Est GFR ( Amer) 58 (> 60) L 11/08/16 06:07 Est GFR (Non-Af Amer) 48 (> 60) L 11/08/16 06:07 Urine Clarity Cloudy (Clear) A 11/06/16 16:54 Urine Protein 100 mg/dL (Neg-Trace) H 11/06/16 16:54 Urine Glucose (UA) 250 mg/dL (Normal) H 11/06/16 16:54 Urine Ketones Trace mg/dL (Negative) H 11/06/16 16:54 Urine Blood Trace (Negative) H 11/06/16 16:54 Ur Squamous Epith Cells Moderate per lpf (None-Few) H 11/06/16 16:54 Urine Yeast Moderate per hpf (None Seen) H 11/06/16 16:54 Antibody Screen POSITIVE A 11/06/16 14:45 - VTE Documentation of Mechanical Device: Venous foot pump, device Consult Discharge Plan - Plan Referrals: Bashir Browne MD [Primary Care Provider] -
[2016-11-08] MEDS: Metoprolol 100 MG TABLET PO SCH ×2 (08:24→20:48)
[2016-11-08] MEDS: *HR* OxyCODONE Immed Rel 5 MG TABLET PO PRN (08:24)
[2016-11-08] MEDS: 0.9 % Sodium Chloride 1,000 ML IVC SCH (10:55)
[2016-11-08] MEDS ORDERED: Bupivacaine/Clonidine Syringe 1 EACH SYRINGE ONE (14:24)
[2016-11-08] MEDS ORDERED: Tetracaine/PF 20 MG/2 ML AMPUL ONE (14:24)
[2016-11-08] MEDS ORDERED: ROPIVACAINE HCL/PF 0.5% 30 ML VIAL ONE (14:24)
[2016-11-08] MEDS ORDERED: *HR* Propofol 200 MG/20 ML VIAL IVP ONE (14:57)
[2016-11-08] MEDS ORDERED: *HR* FentaNYL (PF) 100 MCG/2 ML VIAL ONE (14:57)
[2016-11-08] MEDS ORDERED: *HR* Phenylephrine 10 MG/ML VIAL ONE (15:31)
--- NOTE | 2016-11-08 16:06 | Anesthesia Procedures ---
Date of Encounter: 11/08/16 Time of Encounter: 15:00 Procedures: Anesthesia - Nerve Block Procedure Date: 11/08/16 Time: 15:00 Allergies/Adv Reactions: Allergies Allergy/AdvReac Type Severity Reaction Status Date / Time No Known Allergies Allergy Verified 11/03/16 18:57 Pre-op Diagnosis: Left Humerus Fracture Surgical Procedure: Left Reverse Total Shoulder Replacement Checklist: Correct Patient Identifier, Correct procedure, History checked Correct side: Left Blood Thinner: No Monitor Applied: EKG, BP, Pulse Oximetry Supplemental Oxygen via Nasal Cannula (L/min): 2 Sedation: Fentanyl (mcg): 50 Indication: Post Op Analgesia Pre-op Neuro Deficits: No Block Type: Supraclavicular, Other (SCP, ICB) Catheter placed: No Sterile Technique: Yes Ultrasound used: Yes Anatomy identified: Yes Visual spread of Local: Yes Blood on Needle Aspiration: No Smooth Injection of Local: Yes Pain with Injection of Local: No Prep: Chlorhexadine Needle: 22 x 50 mm Stimuplex Local: 0.25% Bupivicaine w/Clonidine 20 mcg/cc (5mL each SCP and ICB), Ropivacaine (0.5% - 30mL Supraclav) Volume (cc): 40 Number of Attempts: 1 Complications: None/effective block Vitals: VSS throughout. Finishing vital 150/74, 67, 99%, 16RR Comments: Verbal order Dr Randolph for postop pain management. Patient tolerated procedure well.
--- NOTE | 2016-11-08 16:31 | Orthopedic Operative Note ---
Date of procedure: 11/08/16 Pre-op diagnosis: Displaced proximal humerus fracture left Post-op diagnosis: same Procedure: Procedure: Left Reverse total shoulder replacment, Estimated blood loss: 100 cc Hardware: Metal and polyethylene replacement Arthrex glenoid baseplate: Medium , 2 4.5 screws. 1 6.5 screw, glenosphere: 39+4 , humeral stem: 8 , poly insert: 3 constrained 6 metal Procedural Notes: Significantly displaced fracture with comminution proximally. Operative procedure: The patient was brought to the operating room and placed on the operating room table. After general anesthesia was administered the operative shoulder was examined. Findings were noted. The patient was placed in the modified beachchair position. All pressure points were padded appropriately. And the head was stabilized in the neutral position. The operative extremity was prepped and draped in the sterile surgical fashion. The patient received IV antibiotics prior to skin incision. A standard deltopectoral approach was made to the operative shoulder. Incision was made to the skin and subcutaneous tissue,hemo stasis was obtained with Bovie cautery. Using careful blunt dissection the cephalic vein was identified and mobilized medially. The deltopectoral interval was developed and the clavipectoral fascia was incised. The lesser tuberosity was identified and tagged with 2 #2 fiber loops and 2 #2 FiberWire suture. The greater tuberosity was identified and tagged with 6 #5 FiberWire suture. The humeral head was removed. Anterior and posterior Bankart retractors were placed to expose the glenoid. The glenoid guide was seated and the centering hole was made. It was reamed with the appropriate reamer. The medium baseplate was seated and secured with ( 2) 4.5 screws and one 6.5 screw. The baseplate was irrigated and dried and the appropriate 39+4 seated and secured with the Palencia taper. The Palencia taper was tested and found to be secure the humerus was redislocated and prepared with the diaphyseal reamers, followed by a broaching process up to the appropriate size 8 in 20 degrees of retro-version. Trial reduction found the shoulder to be relocatable. Trial components were removed and [address] on either side of the bicpital groove and filled with #5 fiberwire for vertical fixation of the tuberosities. The real humeral component was impaced in place in 20 degrees of retroversion. Trial reduction found the shoulder to be relocatable and stable with the 6 metal and 3 constrained [place]. Trial component was removed and the real implants was seated and secured the shoulder was reduced. The shoulder had excellent motion and excellent stability and no evidence of dislocation. The greater tuberosity was reduced and repaired to the implant with 2 # 5 fiberwire sutures. the lesser tuberosity was reduced and repaired to this construct with 2 #5 fiberwire sutures. Vertical fixation of the tuberosities was accomplished with the #5 fiberwire sutures in the humeral shaft. The deep tissue was irrigated with pulse irrigation. The deltopectoral interval was closed with a running #1 PDS suture, subcutaneous tissue was irrigated and closed with 0 PDS suture, the skin was closed with Dermabond. The patient was placed in a sterile dressing, abduction brace and extubated. The patient was then transferred to the recovery room in stable condition. Anesthesia: BRITTNEE Surgeon: Jae Randolph Air Antisubmarine Officer: Liset Thakkar Condition: stable Disposition: PACU
[2016-11-08] MEDS ORDERED: *HR* HYDROmorphone (PF) 1 MG/ML SYRINGE IVP PRN (16:38)
[2016-11-08] MEDS ORDERED: Naloxone 0.4 MG/ML INJ IVP PRN ×3 (16:38→17:29)
[2016-11-08] MEDS ORDERED: Ondansetron 4 MG/2 ML VIAL IVP PRN ×3 (16:38→17:29)
[2016-11-08] MEDS ORDERED: *HR* Labetalol 100 MG/20 ML MDV IVP PRN (16:38)
--- NOTE | 2016-11-08 16:43 | Internal Med Progress Note ---
Date of Encounter: 11/08/16 Time of Encounter: 16:41 - Assessment and plan (1) Fracture of neck of left humerus Current Visit: Yes Status: Acute Assessment and plan: Due to mechanical fall, patient denies loss of consciousness. Plan for surgery today per orthopedic. - Cardiology consult saw patient, preoperative evaluation appreciated and the recommendation will be followed - Continue pain medication for pain - DVT prophylaxis Qualifiers: Encounter type: initial encounter Fracture type: closed Qualified Code(s) : S42.212A - Unspecified displaced fracture of surgical neck of left humerus, initial encounter for closed fracture (2) Atrial fibrillation Current Visit: Yes Status: Acute Assessment and plan: continue home meds, not in RVR Qualifiers: Atrial fibrillation type: paroxysmal Qualified Code(s): I48.0 - Paroxysmal atrial fibrillation (3) DMII (diabetes mellitus, type 2) Current Visit: Yes Status: Chronic Assessment and plan: Cover patient with basal and the sliding-scale insulin. Follow-up glucose level. Qualifiers: Diabetes mellitus complication status: with unspecified complications Diabetes mellitus manager long term care insulin use: with mcfp use Qualified Code(s) : E11.8 - Type 2 diabetes mellitus with unspecified complications; Z79.4 - retirement (current) use of insulin (4) HTN (hypertension) Current Visit: Yes Status: Chronic Assessment and plan: Continue home medication. Follow-up of BP. Qualifiers: Hypertension type: essential hypertension Qualified Code(s): I10 - Essential (primary) hypertension (5) CAD (coronary artery disease) Current Visit: Yes Status: Chronic Assessment and plan: Had CABG. No complaint of chest pain. We will continue aspirin, beta gabe, JANES inhibitor,and statin. Qualifiers: Coronary Disease-Associated Artery/Lesion type: [place] artery [place] vs. transplanted heart: [place] heart Associated angina: without angina Qualified Code(s): I25.10 - Atherosclerotic heart disease of [place] coronary artery without angina pectoris (6) History of heart bypass surgery Current Visit: Yes Status: Chronic - Subjective Interval history: Patient is a 81-year-old female admitted for left humerus fracture. Her past medical history is significant for CAD S/P CABG, DM, hypertension. Patient was seen and examined. She is awake alert oriented 3. Vitals are stable. Plan for surgery today per orthopedic. - Constitutional Vitals: Temp Pulse Resp BP Pulse Ox 97.4 F L 90 10 149/84 97 06/01/17 11:04 11/08/16 15:10 11/08/16 15:10 11/08/16 15:10 11/08/16 15:10 General appearance: Present: A&O X 3, no acute distress, answers questions appropriately Exam: - Head Head exam: Present: atraumatic, normocephalic - Eye Eye exam: Present: PERRL, conjuntiva pink, sclera anicteric Pupils: Present: PERRL - Neck Neck exam general surgery: Present: supple, trachea midline. Absent: lymphadenopathy - Respiratory Respiratory exam: Present: CTAB. Absent: accessory muscle use, rales, rhonchi, wheezes - Cardiovascular Cardiovascular exam: Present: RRR, +S1, +S2. Absent: diastolic murmur, gallop, rubs, systolic murmur - GI/Abdominal GI/Abdominal exam: Present: normal bowel sounds, soft, no peritoneal signs. Absent: distended, tenderness - Extremities Exam Extremities exam: Present: warm, radial pulses palpable and symetrical. Absent : calf tenderness, cyanotic, pedal edema Additional comments: Left arm ROM limited due to pain - Neurological Exam Neurological exam: Present: CN II-XII intact, oriented X3, no focal deficits. Absent: pronater drift, facial droop, speech deficit - Skin Skin exam: Present: dry, intact Internal Medicine: Result - Labs CBC & Chem 7: 11/08/16 06:07 11/08/16 06:07 Labs: Short CBC 11/08/16 Range/Units 06:07 WBC 12.4 H (4.3-11.1) K/mcL Hgb 11.7 D (11.5-15.4) g/dL Hct 38.5 (35.3-44.9) % Plt Count 488 H (140-400) K/mcL Neutrophils # 9.2 H (1.6-8.9) K/mcL BMP 11/08/16 06:07 Sodium 137 Potassium 4.0 Chloride 102 Carbon Dioxide 26 BUN 16 Creatinine 1.09 Glucose 73 Calcium 10.0 - ABG Interpretation ABG results: PT/INR, D-dimer PT 12.2 Seconds (9.4-12.1) H 11/06/16 14:45 - VTE Documentation of Mechanical Device: Venous foot pump, device Consult Discharge Plan - Plan Referrals: Bashir Browne MD [Primary Care Provider] -
--- NOTE | 2016-11-08 17:11 | Anesthesia Evaluation Post Op ---
Date of Encounter: 11/08/16 Time of Encounter: 17:20 - Vital Signs Vital Signs: Vital Signs/O2 Sat/Glucose, Most Current Temp Pulse Resp BP Pulse Ox 11/08/16 16:50 98.3 F 71 20 146/75 93 11/08/16 15:10 90 10 149/84 97 - Lungs Lungs: Clear Ascult./Percussion - Airway Airway: Non-obstructed - Cardiovascular Regular Rate - Mental Status Mental Status: Alert & Oriented, Answers Appropriately - Pain Pain Scale: 0 - Nausea Vomiting Nausea Vomiting: Not Present - Hydration Hydration: Ice chips - Discharge PostOp Status: Transfer Patient to floor
[2016-11-08] MEDS ORDERED: *HR* Dextrose 50 % in Water (Syg) 50 ML SYRINGE IVP PRN (17:29)
[2016-11-08] MEDS ORDERED: Ringers Solution, Lactated 1,000 ML IVC SCH (17:29)
[2016-11-08] MEDS ORDERED: Temazepam 15 MG CAPSULE PO PRN (17:29)
[2016-11-08] MEDS ORDERED: Acetaminophen 325 MG TABLET PO PRN (17:29)
[2016-11-08] MEDS ORDERED: 0.9 % Sodium Chloride 1,000 ML IVC SCH (17:29)
[2016-11-08] MEDS ORDERED: Nitroglycerin 0.4 MG TAB.SUBL SL PRN (17:29)
[2016-11-08] MEDS ORDERED: Ondansetron ODT 4 MG TAB.RAPDIS SL PRN (17:29)
[2016-11-08] MEDS ORDERED: Sennosides 8.6 MG TABLET PO PRN (17:29)
[2016-11-08] MEDS ORDERED: MOM Conc 10 ML UD.LIQ PO PRN (17:29)
[2016-11-08] MEDS ORDERED: Dextrose Gel 15 GM PO PRN ×2 (17:29)
[2016-11-08] MEDS ORDERED: CloNIDine Patch 0.1 MG PATCH (WEEKLY) TD SCH (17:29)
[2016-11-08] MEDS ORDERED: Ammonium Lactate 30 APPL/225 GM BOTTLE TP PRN (17:29)
[2016-11-08] MEDS ORDERED: Budesonide/Formoterol 160/4.5 MDI IH PRN (17:29)
[2016-11-08] MEDS ORDERED: D5% in Water 1,000 ML IVC PRN (17:29)
[2016-11-08 17:43] LABS: Hematocrit 31.6 % (35.3-44.9)
[2016-11-08 17:45] LABS: Hemoglobin 9.8 g/dL (11.5-15.4)
[2016-11-08] MEDS: *HR* Metformin 850 MG TABLET PO SCH (18:00)
[2016-11-08] MEDS: ceFAZolin 2,000 MG in D5% in Water 100 ML IVPB SCH (19:26)
--- NOTE | 2016-11-08 20:15 | Electrocardiograph Report ---
[place] [address] Test Date: 2016-11-07 Pat Name: Gregoria Buenrostro Department: 115 Room: [facility] Gender: F Desktop Architect: GOMEZ : 1935 Requested By: Jae Randolph Order Number: [id number] Reading MD: Dale Muller MD Measurements Intervals [place] Rate: 110 P: IN: 0 QRS: -9 QRSD: 109 T: 144 QT: 348 QTc: 413 Interpretive Statements sinus tachycardia poor r wave progression Electronically Signed On 11-08-2016 20:14:02 EDT by Dale Muller MD
[2016-11-08] MEDS ORDERED: Insulin LISPRO 300 UNITS/3 ML VIAL SQ SCH (21:00)
[2016-11-08] MEDS ORDERED: Insulin DETEMIR 100 UNIT/ML X5UNITS SQ SCH (21:00)
[2016-11-09] MEDS: ceFAZolin 2,000 MG in D5% in Water 100 ML IVPB SCH (04:16)
[2016-11-09 05:18] LABS: Hematocrit 29.4 % (35.3-44.9); Hemoglobin 9.1 g/dL (11.5-15.4)
[2016-11-09] MEDS: *HR* OxyCODONE Immed Rel 5 MG TABLET PO PRN ×2 (05:38→11:37)
--- NOTE | 2016-11-09 06:26 | Orthopedics Progress Note ---
Date of Encounter: 11/09/16 Time of Encounter: 06:25 Subjective Interval history: Patient was seen this morning doing well without complaints. Afebrile vital signs stable. Operative extremity: Neurovascularly intact Dressing clean dry and intact Calves nontender Assessment and plan: Continue with postoperative care Hematocrit 28 Objective Vital signs: Vital Signs Temp Pulse Resp BP Pulse Ox 11/09/16 04:45 98.8 F 79 16 143/68 94 11/09/16 00:08 98.2 F 75 17 124/66 93 11/08/16 20:30 73 18 152/75 97 11/08/16 19:30 97.5 F L 70 16 137/80 92 11/08/16 18:34 97.4 F L 71 14 129/67 95 11/08/16 17:58 97.4 F L 72 12 152/75 95 11/08/16 17:32 97.6 F 71 14 149/75 97 11/08/16 17:15 98.5 F 65 18 152/74 98 11/08/16 17:00 69 18 158/64 98 11/08/16 16:50 98.3 F 71 20 146/75 93 11/08/16 15:10 90 10 149/84 97 11/08/16 11:04 97.4 F L 69 18 150/71 95 11/08/16 06:46 97.7 F 68 18 152/74 95 Intake and Output 11/08/16 11/08/16 11/09/16 15:59 23:59 07:59 Intake Total 1000 / 1000 580 / 580 480 / 480 Output Total 100 / 100 Balance 999 / 999 480 / 480 480 / 480 Intake: IV Fluids 1000 / 1000 100 / 100 0.9 % Sodium Chloride 1, 1000 / 1000 000 ML @ 75 mls/hr IVC . [id number] [facility] Rx#: [id number] Ancef 2,000 MG In 100 / 100 Dextrose 5% 100 ML @ 200 mls/hr IVPB Q8H [facility] Rx#: [id number] Oral 480 / 480 480 / 480 Output: Urine Estimated Blood Loss 100 / 100 Other: # Voids 1 1 1 Weight 59.5 kg Blood Glucose* 97 146 Patient Weight 11/09/16 23:59 Weight 59.5 kg - Labs CBC & BMP: 11/09/16 04:42 11/08/16 06:07 Labs: Abnormal lab results WBC 12.4 K/mcL (4.3-11.1) H 11/08/16 06:07 Hgb 9.1 g/dL (11.5-15.4) L 11/09/16 04:42 Hct 29.4 % (35.3-44.9) L 11/09/16 04:42 MCH 25.9 pg (28.0-33.3) L 11/08/16 06:07 MCHC 30.4 g/dL (31.6-35.5) L 11/08/16 06:07 RDW 15.9 % (11.5-14.5) H 11/08/16 06:07 Plt Count 488 K/mcL (140-400) H 11/08/16 06:07 Neutrophils # 9.2 K/mcL (1.6-8.9) H 11/08/16 06:07 PT 12.2 Seconds (9.4-12.1) H 11/06/16 14:45 Est GFR ( Amer) 58 (> 60) L 11/08/16 06:07 Est GFR (Non-Af Amer) 48 (> 60) L 11/08/16 06:07 POC Glucose 146 (58-89) H 11/08/16 19:55 Urine Clarity Cloudy (Clear) A 11/06/16 16:54 Urine Protein 100 mg/dL (Neg-Trace) H 11/06/16 16:54 Urine Glucose (UA) 250 mg/dL (Normal) H 11/06/16 16:54 Urine Ketones Trace mg/dL (Negative) H 11/06/16 16:54 Urine Blood Trace (Negative) H 11/06/16 16:54 Ur Squamous Epith Cells Moderate per lpf (None-Few) H 11/06/16 16:54 Urine Yeast Moderate per hpf (None Seen) H 11/06/16 16:54 Antibody Screen POSITIVE A 11/06/16 14:45 - VTE Documentation of Mechanical Device: Venous foot pump, device Consult Discharge Plan - Plan Referrals: Bashir Browne MD [Primary Care Provider] -
[2016-11-09] MEDS ORDERED: Insulin LISPRO 300 UNITS/3 ML VIAL SQ SCH (07:30)
[2016-11-09] MEDS ORDERED: Celecoxib 200 MG CAPSULE PO SCH (09:00)
[2016-11-09] MEDS ORDERED: Lisinopril 20 MG TABLET PO SCH (09:00)
[2016-11-09] MEDS ORDERED: Aspirin Enteric Coated 81 MG Tablet PO SCH (09:00)
[2016-11-09] MEDS ORDERED: Bumetanide 1 MG TABLET PO SCH (09:00)
[2016-11-09] MEDS: Gabapentin 300 MG CAPSULE PO SCH (09:20)
[2016-11-09] MEDS: Metoprolol 100 MG TABLET PO SCH (09:21)
[2016-11-09] MEDS: *HR* Metformin 850 MG TABLET PO SCH (09:22)
[2016-11-09 11:59] VITALS: BP 129/78
--- NOTE | 2016-11-09 12:04 | Discharge Summary ---
Date of Encounter: 11/09/16 Time of Encounter: 12:02 - Discharge Diagnosis (1) Fracture of neck of left humerus Priority: Primary Status: Acute Qualifiers: Encounter type: initial encounter Fracture type: closed Qualified Code(s) : S42.212A - Unspecified displaced fracture of surgical neck of left humerus, initial encounter for closed fracture (2) DMII (diabetes mellitus, type 2) Priority: Secondary Status: Chronic Qualifiers: Diabetes mellitus complication status: with unspecified complications Diabetes mellitus penitentiary insulin use: with termite helper use Qualified Code(s) : E11.8 - Type 2 diabetes mellitus with unspecified complications; Z79.4 - termination clerk (current) use of insulin (3) HTN (hypertension) Priority: Secondary Status: Chronic Qualifiers: Hypertension type: essential hypertension Qualified Code(s): I10 - Essential (primary) hypertension (4) CAD (coronary artery disease) Priority: Secondary Status: Chronic Qualifiers: Coronary Disease-Associated Artery/Lesion type: [place] artery [place] vs. transplanted heart: [place] heart Associated angina: without angina Qualified Code(s): I25.10 - Atherosclerotic heart disease of [place] coronary artery without angina pectoris (5) History of heart bypass surgery Priority: Secondary Status: Chronic (6) Atrial fibrillation Priority: Secondary Status: Acute Qualifiers: Atrial fibrillation type: paroxysmal Qualified Code(s): I48.0 - Paroxysmal atrial fibrillation - Discharge Medications Prescriptions: HYDROcodone/Acet 5/325 mg [[place] 5-325 mg] 1 - 2 tab PO Q4H PRN #30 tablet PRN Reason: Pain Home Medications: Acetaminophen/Diphenhydramine [Acetaminophen Pm Caplet] 2 each PO HS PRN [History] Albuterol Sulfate [Albuterol Inhaler] 2 puff IH Q4H PRN 11/06/16 [History] Ammonium Lactate [Tammy-Hydrolac] 1 appl TP BID PRN 11/06/16 [History] Aspirin Enteric Coated [Aspirin EC] 81 mg PO DAILY 11/06/16 [History] Bumetanide [Bumex] 1 mg PO DAILY 11/06/16 [History] Celecoxib [Celebrex] 200 mg PO DAILY 11/06/16 [History] CloNIDine [Catapres-Tts 1] 1 each TD QWEEK 11/06/16 [History] DULoxetine [Cymbalta] 40 mg PO DAILY 11/06/16 [History] Felodipine [Felodipine ER] 10 mg PO DAILY 11/06/16 [History] Ferrous Sulfate 325 mg PO BIDWM 11/06/16 [History] Fluticasone/Salmeterol [Advair 250-50 Diskus] 1 each IH BID PRN 11/06/16 [ History] Gabapentin [Neurontin] 600 mg PO TID 11/06/16 [History] Insulin Glargine,Hum.rec.anlog [Lantus Solostar] 10 unit SQ HS 11/06/16 [History ] Levothyroxine [Levothyroxine Sodium] 137 mcg PO DAILY@0630 11/06/16 [History] Lisinopril [Zestril] 20 mg PO DAILY 11/06/16 [History] Metoprolol [Lopressor] 100 mg PO BID 11/06/16 [History] Montelukast [Singulair] 10 mg PO DAILY 11/06/16 [History] Nitroglycerin [Nitrostat] 0.4 mg SL Q5M PRN 11/06/16 [History] Ondansetron ODT [Zofran ODT] 4 mg SL Q4HR PRN 11/06/16 [History] Pantoprazole Sodium [Protonix] 20 mg PO DAILY 11/06/16 [History] Rosuvastatin [Crestor] 40 mg PO HS 11/06/16 [History] metFORMIN [Glucophage] 850 mg PO BIDWM 11/06/16 [History] HYDROcodone/Acet 5/325 mg [[place] 5-325 mg] 1 - 2 tab PO Q4H PRN #30 tablet 11/09 [Rx] Allergies/Adverse Reactions: Allergies No Known Allergies Allergy (Verified 11/03/16 18:57) Labs on day of discharge: Labs from last 24 hours 11/09/16 11/08/16 11/08/16 04:42 19:55 17:46 Hgb 9.1 L Hct 29.4 L POC Glucose 146 H 112 H 11/08/16 11/08/16 11/08/16 17:27 16:52 11:08 Hgb 9.8 L D Hct 31.6 L POC Glucose 116 H 97 H 11/08/16 09:45 Hgb Hct POC Glucose 88 - Impressions ITS Impressions Chest X-Ray 11/06/16 12:20 IMPRESSION: No acute abnormality. Stable chronic right hemidiaphragm elevation. D/ / 11/06/2016 13:38:28 Nicolas Almanza MD / Bailey Hartman Interpreting Provider: Nicolas Almanza MD Shoulder X-Ray 11/08/16 15:17 IMPRESSION: 1. Status post reversed total shoulder arthroplasty. No immediate complication. D/ / 11/08/2016 17:23:22 Dara Armendariz MD / tino Interpreting Provider: Dara Armendariz MD Date of admission: 11/06/16 11:34 Primary care physician: Bashir Browne MD Consults: 11/06/16 13:04 Consult to Cardiology [CONS] Routine Comment: Consulting Provider: Sharyn Brewster Reason for Consult: Pre-op clearance- history of bypass Call Completed: Yes 11/08/16 17:29 Consult to Occupational Therapy [CONS] Routine Comment: post shoulder surgery Reason for Consult: NO SHOULDER MOTION Consult to Physical Therapy [CONS] Routine Comment: post shoulder surgery Reason for Consult: post shoulder surgery RT Post Op Consult [CONS] Routine - Patient Status Disposition: Transfer Inpatient Rehab Fac Condition: Good Functional capacity at discharge: independent ambulation Overall status at discharge: patient is progressing back to baseline - Discharge Instructions Follow Up With: Sameera Martell PAC [Physician Skilled Helper] - 11/15/16 1:00 pm Bashir Browne MD [Primary Care Provider] - Additional Instructions: Discharge Instructions: Total Shoulder Please call [facility] ([phone]), your Primary Care Physician, or report to the Emergency Room if you have any of the following symptoms: Nausea, vomiting, fever greater that 101.5, swelling, chest pain, shortness of breath, increased pain/redness/drainage/odor for your incision site, numbness/ tingling, or any other concerning symptoms. ACTIVITY: Always keep your arm in the sling. Do not raise your arm away from your body. Do not use your arm to help with getting in or out of bed. No weight bearing permitted. No shoulder motion. MEDICATIONS: Upon discharge resume your home medications. Take all the medications as prescribed. Take a stool softener if taking narcotic pain medications. Stool softeners are only effective if you drink enough fluids. Drink 6-8 glass of water or fluids a day, unless this is not allowed for another health problem. Despite using stool softeners, if you haven't had a bowel movement in 3 days, please switch to a gentle laxative. Gentle laxatives are sold over the counter. You should have a bowel movement within 24 hours, if not call the office. You will be discharged from the hospital with a prescription for pain medication. You are encouraged to decrease the use of narcotic pain medication as tolerated. Should you require a refill, please call the office. [facility] prescribes narcotic pain medication for only 4-6 weeks after surgery. If you require pain medication beyond this time period, you may be referred to your Primary Care Physician or to the Pain Clinic for further evaluation. Plan ahead for refills on pain medication as many narcotics either need to be picked up at the office or mailed. It is best to call 48-72 hours in advance of needing a prescription refill so you don't run out of medication. To help control the post-operative pain, you may take NSAIDs (Aleve,Advil, Motrin, Ibuprofen, Naprosyn) or Tylenol as prescribed on the bottle in addition to the pain medication. WOUND CARE: Leave the dressing on for 7-10 days. You may change the dressing if it becomes saturated greater than 50%. Do not get the dressing wet at anytime. Wash your hands with antibacterial soap, rinse and dry prior to any wound care. If you have ronda the visiting nurse or rehab facility can remove the stapes 10-14 days after surgery and place steri-strips across the wound. Leave the steri-strips in place until they fall off on their own. You may let water from the shower run on top of the steri-strips. If you do not have a visiting nurse or rehab facility, you will need to return to the office at 10-14 days for the ronda to be removed. If you have itching or redness around the dressing call the office. FOLLOW-UP: Please follow up with your surgeon in the orthopedic clinic, as scheduled - Hospital Course Hospital course: Ms. Buenrostro is a 81 year old female - Time Spent with Patient Total time spent providing and/or coordinating discharge services: - VTE Documentation of Mechanical Device: Venous foot pump, device
--- NOTE | 2016-11-09 15:36 | Internal Med Progress Note ---
Date of Encounter: 11/09/16 Time of Encounter: 15:33 - Assessment and plan (1) Fracture of neck of left humerus Status: Acute Assessment and plan: Due to mechanical fall, patient denies loss of consciousness. s/p Left Reverse total shoulder replacment yesterday. stable for dc to inpatient rehab today. post op care as per ortho Qualifiers: Encounter type: initial encounter Fracture type: closed Qualified Code(s) : S42.212A - Unspecified displaced fracture of surgical neck of left humerus, initial encounter for closed fracture (2) Atrial fibrillation Status: Acute Assessment and plan: continue home meds, not in RVR Qualifiers: Atrial fibrillation type: paroxysmal Qualified Code(s): I48.0 - Paroxysmal atrial fibrillation (3) DMII (diabetes mellitus, type 2) Status: Chronic Assessment and plan: Cover patient with basal and the sliding-scale insulin. Follow-up glucose level. 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 Follow-up of BP. Qualifiers: Hypertension type: essential hypertension Qualified Code(s): I10 - Essential (primary) hypertension (5) CAD (coronary artery disease) Status: Chronic Assessment and plan: Had CABG. No complaint of chest pain. We will continue aspirin, beta gabe, JANES inhibitor,and statin. Qualifiers: Coronary Disease-Associated Artery/Lesion type: [place] artery [place] vs. transplanted heart: [place] heart Associated angina: without angina Qualified Code(s): I25.10 - Atherosclerotic heart disease of [place] coronary artery without angina pectoris (6) History of heart bypass surgery Status: Chronic - Subjective Interval history: Patient is a 81-year-old female admitted for left humerus fracture. Her past medical history is significant for CAD S/P CABG, DM, hypertension. Patient was seen and examined. She is awake alert oriented 3. Vitals are stable. Patient is status post surgery for left humerus fracture and being discharged today to rehabilitation. - Constitutional Vitals: Temp Pulse Resp BP Pulse Ox 98.4 F 86 18 129/78 97 11/09/16 09:34 11/09/16 09:34 11/09/16 09:34 11/09/16 09:34 11/09/16 09:34 General appearance: Present: A&O X 3, no acute distress, answers questions appropriately Exam: - Head Head exam: Present: atraumatic, normocephalic - Eye Eye exam: Present: PERRL, conjuntiva pink, sclera anicteric Pupils: Present: PERRL - Neck Neck exam general surgery: Present: supple, trachea midline. Absent: lymphadenopathy - Respiratory Respiratory exam: Present: CTAB. Absent: accessory muscle use, rales, rhonchi, wheezes - Cardiovascular Cardiovascular exam: Present: RRR, +S1, +S2. Absent: diastolic murmur, gallop, rubs, systolic murmur - GI/Abdominal GI/Abdominal exam: Present: normal bowel sounds, soft, no peritoneal signs. Absent: distended, tenderness - Extremities Exam Extremities exam: Present: warm, radial pulses palpable and symetrical. Absent : calf tenderness, cyanotic, pedal edema Additional comments: Left arm ROM limited due to pain - Neurological Exam Neurological exam: Present: CN II-XII intact, oriented X3, no focal deficits. Absent: pronater drift, facial droop, speech deficit - Skin Skin exam: Present: dry, intact Internal Medicine: Result - Labs CBC & Chem 7: 11/09/16 04:42 11/08/16 06:07 Labs: Short CBC 11/08/16 11/09/16 Range/Units 17:27 04:42 Hgb 9.8 L D 9.1 L (11.5-15.4) g/dL Hct 31.6 L 29.4 L (35.3-44.9) % - ABG Interpretation ABG results: PT/INR, D-dimer PT 12.2 Seconds (9.4-12.1) H 11/06/16 14:45 - Impressions Impressions Shoulder X-Ray 11/08/16 15:17 IMPRESSION: 1. Status post reversed total shoulder arthroplasty. No immediate complication. D/ / 11/08/2016 17:23:22 Dara Armendariz MD / tino Interpreting Provider: Dara Armendariz MD - VTE Documentation of Mechanical Device: Venous foot pump, device Consult Discharge Plan - Plan Additional Instructions: Discharge Instructions: Total Shoulder Please call [facility] ([phone]), your Primary Care Physician, or report to the Emergency Room if you have any of the following symptoms: Nausea, vomiting, fever greater that 101.5, swelling, chest pain, shortness of breath, increased pain/redness/drainage/odor for your incision site, numbness/ tingling, or any other concerning symptoms. ACTIVITY: Always keep your arm in the sling. Do not raise your arm away from your body. Do not use your arm to help with getting in or out of bed. No weight bearing permitted. No shoulder motion. MEDICATIONS: Upon discharge resume your home medications. Take all the medications as prescribed. Take a stool softener if taking narcotic pain medications. Stool softeners are only effective if you drink enough fluids. Drink 6-8 glass of water or fluids a day, unless this is not allowed for another health problem. Despite using stool softeners, if you haven't had a bowel movement in 3 days, please switch to a gentle laxative. Gentle laxatives are sold over the counter. You should have a bowel movement within 24 hours, if not call the office. You will be discharged from the hospital with a prescription for pain medication. You are encouraged to decrease the use of narcotic pain medication as tolerated. Should you require a refill, please call the office. [facility] prescribes narcotic pain medication for only 4-6 weeks after surgery. If you require pain medication beyond this time period, you may be referred to your Primary Care Physician or to the Pain Clinic for further evaluation. Plan ahead for refills on pain medication as many narcotics either need to be picked up at the office or mailed. It is best to call 48-72 hours in advance of needing a prescription refill so you don't run out of medication. To help control the post-operative pain, you may take NSAIDs (Aleve,Advil, Motrin, Ibuprofen, Naprosyn) or Tylenol as prescribed on the bottle in addition to the pain medication. WOUND CARE: Leave the dressing on for 7-10 days. You may change the dressing if it becomes saturated greater than 50%. Do not get the dressing wet at anytime. Wash your hands with antibacterial soap, rinse and dry prior to any wound care. If you have ronda the visiting nurse or rehab facility can remove the stapes 10-14 days after surgery and place steri-strips across the wound. Leave the steri-strips in place until they fall off on their own. You may let water from the shower run on top of the steri-strips. If you do not have a visiting nurse or rehab facility, you will need to return to the office at 10-14 days for the ronda to be removed. If you have itching or redness around the dressing call the office. FOLLOW-UP: Please follow up with your surgeon in the orthopedic clinic, as scheduled Referrals: Sameera Martell PAC [Physician Clock And Watch Hands Dipper] - 11/15/16 1:00 pm Bashir Browne MD [Primary Care Provider] - Prescriptions: HYDROcodone/Acet 5/325 mg [[place] 5-325 mg] 1 - 2 tab PO Q4H PRN #30 tablet PRN Reason: Pain
== END 2016-11-09 14:18 ==
LOC: 3ANU → 3NENU 11-07 16:24
PROVIDERS: ADMIT Orthopaedic Surgery; ATTEND Orthopaedic Surgery

== ENCOUNTER 2019-10-03 11:26 | Inpatient (IN) ==
[2019-10-03] MEDS ORDERED: Ondansetron 4 MG/2 ML VIAL IVP ONE (11:35)
[2019-10-03] MEDS ORDERED: Isovue-370 500 ML BOTTLE IVP ONE (11:47)
[2019-10-03 11:52] LABS: Bilirubin,Urine Negative (Negative); Blood,Urine Large (Negative); Clarity,Urine Clear (Clear); Color,Urine Yellow (Yellow); Glucose,Urine (UA) Normal (Normal); Ketones,Urine Negative (Negative); Leukocyte Esterase,Urine Large (Negative); Nitrite,Urine Negative (Negative); PH,Urine 6.5 pH Units (5.0-8.0); Protein,Urine 30 mg/dL (Neg-Trace); Specific Gravity,Urine 1.009 (1.010-1.025); Urobilinogen,Urine Normal (Normal)
[2019-10-03 11:54] LABS: Bacteria,Urine None Seen per hpf (None-Few); Hyaline Casts,Urine None Seen per lpf (None-Few); RBC,Urine 0-3 per hpf (0-3); Squamous Epithelial Cell,Urine Many per lpf (None-Few); WBC,Urine 30-50 per hpf (0-3)
[2019-10-03 12:00] LABS: Basophils # 0.1 K/mcL (0.0-0.2); Basophils % 0.8 %; Eosinophils # 0.4 K/mcL (0.0-0.6); Hematocrit 42.6 % (35.3-44.9); Immature Granulocytes % 0.2 % (0-4); Lymphocytes # 1.8 K/mcL (0.6-4.6); Lymphocytes % 13.9 %; Mean Corpuscular HGB Conc 32.9 g/dL (31.6-35.5); Mean Corpuscular Hemoglobin 28.5 pg (28.0-33.3); Mean Corpuscular Volume 86.6 fL (83.0-100.0); Mean Platelet Volume 10.5 fL (9.4-12.4); Monocytes # 1.1 K/mcL (0.0-1.3); Monocytes % 8.5 %; Neutrophils # 9.7 K/mcL (1.6-8.9); Platelet Count 300 K/mcL (140-400); Red Blood Count 4.92 M/mcL (3.82-4.97); Red Cell Distribution Width 15.9 % (11.5-14.5); Segmented Neutrophils % 73.6 %; White Blood Count 13.2 K/mcL (4.3-11.1)
[2019-10-03 12:12] LABS: Amorphous Sediment,Urine Few per hpf (Few); Renal Epithelial Cells,Urine Moderate per hpf (None-Few); Transitional Epi Cells,Urine Few per hpf (None-Few)
[2019-10-03 12:21] LABS: Alanine Aminotransferase 93 Units/L (7-52); Albumin/Globulin Ratio 1.4 (1.1-2.2); Alkaline Phosphatase 117 Units/L (34-104); Aspartate Amino Transferase 94 Units/L (13-39); BUN/Creatinine Ratio 12 (6-26); Bilirubin,Direct 0.1 mg/dL (0.0-0.2); Bilirubin,Indirect 0.2 mg/dL (0.0-1.0); Bilirubin,Total 0.3 mg/dL (0.3-1.0); Blood Urea Nitrogen 59 mg/dL (8-23); Carbon Dioxide 27 mEq/L (23-29); Chloride 92 mEq/L (98-107); Globulin 2.8 g/dL (2.4-3.5); Glucose 106 mg/dL (70-105); Osmolality,Calculated 291 (280-300); Potassium 3.4 mEq/L (3.5-5.1); Sodium 132 mEq/L (136-145); Total Protein 6.8 g/dL (6.4-8.9); Troponin I 0.04 ng/mL (< 0.04); eGFR For African Americans 10 (> 60); eGFR For Non-African Americans 8 (> 60)
[2019-10-03 14:48] LABS: C-Reactive Protein < 5 mg/L (Less than 10); Ferritin 55 ng/mL (10-120)
[2019-10-03] MEDS ORDERED: Acetaminophen 325 MG TABLET PO PRN (16:01)
[2019-10-03] MEDS ORDERED: Mag Hydrox/Al Hydrox/Simeth 30 ML UDC PO PRN (16:01)
[2019-10-03] MEDS ORDERED: MOM Conc 10 ML UD.LIQ PO PRN (16:01)
[2019-10-03] MEDS ORDERED: Naloxone 0.4 MG/ML INJ IVP PRN (16:01)
[2019-10-03] MEDS ORDERED: Ondansetron 4 MG/2 ML VIAL IVP PRN (16:01)
[2019-10-03] MEDS ORDERED: *HR* Dextrose 50 % in Water (Syg) 50 ML SYRINGE IVP PRN (16:10)
[2019-10-03] MEDS ORDERED: Dextrose Gel 15 GM/37.5 ML TUBE PO PRN ×2 (16:10)
[2019-10-03] MEDS ORDERED: D5% in Water 1,000 ML IVC PRN (16:10)
[2019-10-03] MEDS: Insulin LISPRO 300 UNITS/3 ML VIAL SQ SCH ×2 (17:50→21:45)
[2019-10-03] MEDS: 0.9 % Sodium Chloride 1,000 ML IVC SCH (17:51)
[2019-10-03] MEDS: *HR* Heparin 5,000 UNIT/ML VIAL SQ SCH (17:51)
[2019-10-03] MEDS ORDERED: Gabapentin 300 MG CAPSULE PO SCH (20:00)
[2019-10-03] MEDS: Budesonide/Formoterol 160/4.5 1 PUFF INH IH SCH (20:04)
[2019-10-03] MEDS ORDERED: NON-FORMULARY MEDICATION 1 EACH EACH (Insulin Detemir [Levemir Flextouch] 10 UNIT) SQ SCH (21:00)
[2019-10-03] MEDS: cefTRIAXone 1,000 MG in Water for inj. (sterile) 10 ML IVP SCH (21:41)
[2019-10-03] MEDS: Metoprolol 100 MG TABLET PO SCH (21:43)
[2019-10-03] MEDS: Gabapentin 100 MG CAPSULE PO SCH (21:43)
[2019-10-03] MEDS: Insulin DETEMIR 100 UNIT/ML X5UNITS SQ SCH (21:47)
[2019-10-04] MEDS: *HR* Heparin 5,000 UNIT/ML VIAL SQ SCH ×2 (04:53→17:15)
[2019-10-04 05:04] LABS: Hemoglobin 12.5 g/dL (11.5-15.4); Mean Corpuscular HGB Conc 31.3 g/dL (31.6-35.5); Mean Corpuscular Hemoglobin 27.7 pg (28.0-33.3); Mean Corpuscular Volume 88.7 fL (83.0-100.0); Mean Platelet Volume 11.1 fL (9.4-12.4); Platelet Count 254 K/mcL (140-400); Red Blood Count 4.51 M/mcL (3.82-4.97); Red Cell Distribution Width 16.1 % (11.5-14.5); White Blood Count 8.5 K/mcL (4.3-11.1)
[2019-10-04 05:22] LABS: Magnesium 1.9 mg/dL (1.6-2.6); Phosphorous 4.7 mg/dL (2.7-4.5); Potassium 4.1 mEq/L (3.5-5.1)
[2019-10-04] MEDS: Aspirin Enteric Coated 81 MG Tablet PO SCH (07:59)
[2019-10-04] MEDS: amLODIPine 5 MG TABLET PO SCH (07:59)
[2019-10-04] MEDS: Insulin LISPRO 300 UNITS/3 ML VIAL SQ SCH ×4 (07:59→22:18)
[2019-10-04] MEDS: Metoprolol 100 MG TABLET PO SCH ×2 (07:59→22:17)
[2019-10-04] MEDS: cefTRIAXone 1,000 MG in Water for inj. (sterile) 10 ML IVP SCH (07:59)
[2019-10-04] MEDS: Gabapentin 100 MG CAPSULE PO SCH ×3 (08:04→22:17)
[2019-10-04] MEDS: Budesonide/Formoterol 160/4.5 1 PUFF INH IH SCH ×2 (08:25→20:09)
[2019-10-04] MEDS ORDERED: MetroNIDAZOLE 500 MG/100 ML 500 MG/100 ML BAG IVPB SCH ×2 (12:51→15:00)
[2019-10-04] MEDS ORDERED: Ringers Solution, Lactated 1,000 ML IVC ONE ×2 (12:52→13:08)
[2019-10-04] MEDS: MetroNIDAZOLE 500 MG/100 ML 500 MG/100 ML BAG IVPB SCH ×2 (13:20→22:23)
[2019-10-04] MEDS: 0.9 % Sodium Chloride 1,000 ML IVC SCH (13:59)
[2019-10-04 14:29] LABS: Protein/Creatinine Ratio,Urine 1.98 mg/mg (0.00-0.20); Sodium, Urine 35.1 mEq/L
[2019-10-04] MEDS: Insulin DETEMIR 100 UNIT/ML X5UNITS SQ SCH (22:17)
[2019-10-05 02:39] LABS: Albumin 3.2 g/dL (3.5-5.7); Calcium 8.1 mg/dL (8.6-10.3); Phosphorous 3.9 mg/dL (2.7-4.5); Potassium 3.3 mEq/L (3.5-5.1)
[2019-10-05] MEDS: *HR* Heparin 5,000 UNIT/ML VIAL SQ SCH ×2 (05:42→16:53)
[2019-10-05] MEDS: MetroNIDAZOLE 500 MG/100 ML 500 MG/100 ML BAG IVPB SCH ×3 (05:42→21:05)
[2019-10-05] MEDS ORDERED: Ringers Solution, Lactated 1,000 ML IVC ONE (07:31)
[2019-10-05] MEDS: Budesonide/Formoterol 160/4.5 1 PUFF INH IH SCH ×2 (07:44→19:48)
[2019-10-05] MEDS: Aspirin Enteric Coated 81 MG Tablet PO SCH (07:54)
[2019-10-05] MEDS: amLODIPine 5 MG TABLET PO SCH (07:54)
[2019-10-05] MEDS: Metoprolol 100 MG TABLET PO SCH ×2 (07:54→20:49)
[2019-10-05] MEDS: cefTRIAXone 1,000 MG in Water for inj. (sterile) 10 ML IVP SCH (07:57)
[2019-10-05] MEDS: Gabapentin 100 MG CAPSULE PO SCH ×3 (07:58→20:51)
[2019-10-05] MEDS: Insulin LISPRO 300 UNITS/3 ML VIAL SQ SCH ×4 (08:06→20:49)
[2019-10-05] MEDS: Sennosides/Docusate Sodium TABLET PO SCH ×2 (11:56→20:49)
[2019-10-06 03:23] LABS: Hematocrit 40.3 % (35.3-44.9); Hemoglobin 12.9 g/dL (11.5-15.4); Mean Corpuscular Hemoglobin 29.1 pg (28.0-33.3); Mean Corpuscular Volume 90.8 fL (83.0-100.0); Mean Platelet Volume 11.5 fL (9.4-12.4); Platelet Count 265 K/mcL (140-400); Red Blood Count 4.44 M/mcL (3.82-4.97); Red Cell Distribution Width 16.7 % (11.5-14.5); White Blood Count 10.4 K/mcL (4.3-11.1)
[2019-10-06 03:42] LABS: Calcium 8.3 mg/dL (8.6-10.3); Magnesium 1.5 mg/dL (1.6-2.6)
[2019-10-06] MEDS: *HR* Heparin 5,000 UNIT/ML VIAL SQ SCH ×2 (05:56→16:42)
[2019-10-06] MEDS: MetroNIDAZOLE 500 MG/100 ML 500 MG/100 ML BAG IVPB SCH (05:56)
[2019-10-06] MEDS: Budesonide/Formoterol 160/4.5 1 PUFF INH IH SCH ×2 (07:55→19:42)
[2019-10-06] MEDS ORDERED: Amoxicillin/Clavulanate 500 MG TABLET PO SCH (08:00)
[2019-10-06] MEDS: amLODIPine 5 MG TABLET PO SCH (08:13)
[2019-10-06] MEDS: Aspirin Enteric Coated 81 MG Tablet PO SCH (08:13)
[2019-10-06] MEDS: Metoprolol 100 MG TABLET PO SCH ×2 (08:14→21:04)
[2019-10-06] MEDS: Sennosides/Docusate Sodium TABLET PO SCH ×2 (08:14→21:05)
[2019-10-06] MEDS: Insulin LISPRO 300 UNITS/3 ML VIAL SQ SCH ×4 (08:14→21:13)
[2019-10-06] MEDS: Gabapentin 100 MG CAPSULE PO SCH ×3 (08:20→21:04)
[2019-10-06] MEDS ORDERED: Ringers Solution, Lactated 1,000 ML IVC ONE (13:19)
[2019-10-06] MEDS ORDERED: 0.9 % Sodium Chloride 1,000 ML IVC SCH (13:30)
[2019-10-06] MEDS: Amoxicillin/Clavulanate 250 MG TABLET PO SCH (16:42)
[2019-10-07 02:31] LABS: Basophils # 0.1 K/mcL (0.0-0.2); Basophils % 0.9 %; Eosinophils # 0.4 K/mcL (0.0-0.6); Eosinophils % 5.1 %; Hematocrit 38.1 % (35.3-44.9); Hemoglobin 11.9 g/dL (11.5-15.4); Immature Granulocytes % 0.3 % (0-4); Lymphocytes # 1.3 K/mcL (0.6-4.6); Mean Corpuscular HGB Conc 31.2 g/dL (31.6-35.5); Mean Corpuscular Hemoglobin 28.5 pg (28.0-33.3); Mean Corpuscular Volume 91.4 fL (83.0-100.0); Mean Platelet Volume 11.3 fL (9.4-12.4); Monocytes # 0.7 K/mcL (0.0-1.3); Monocytes % 9.6 %; Neutrophils # 4.5 K/mcL (1.6-8.9); Platelet Count 238 K/mcL (140-400); Red Blood Count 4.17 M/mcL (3.82-4.97); Red Cell Distribution Width 17.1 % (11.5-14.5); Segmented Neutrophils % 65.1 %; White Blood Count 6.8 K/mcL (4.3-11.1)
[2019-10-07 02:53] LABS: Calcium 8.3 mg/dL (8.6-10.3); Potassium 3.1 mEq/L (3.5-5.1)
[2019-10-07] MEDS: *HR* Heparin 5,000 UNIT/ML VIAL SQ SCH (05:30)
[2019-10-07] MEDS: Budesonide/Formoterol 160/4.5 1 PUFF INH IH SCH (07:43)
[2019-10-07] MEDS: amLODIPine 5 MG TABLET PO SCH (07:59)
[2019-10-07] MEDS: Amoxicillin/Clavulanate 250 MG TABLET PO SCH (07:59)
[2019-10-07] MEDS: Insulin LISPRO 300 UNITS/3 ML VIAL SQ SCH ×2 (07:59→11:21)
[2019-10-07] MEDS: Metoprolol 100 MG TABLET PO SCH (07:59)
[2019-10-07] MEDS: Aspirin Enteric Coated 81 MG Tablet PO SCH (07:59)
[2019-10-07] MEDS: Sennosides/Docusate Sodium TABLET PO SCH (07:59)
[2019-10-07] MEDS: Gabapentin 100 MG CAPSULE PO SCH ×2 (08:01→11:21)
[2019-10-07] MEDS ORDERED: Potassium Chloride Elixir 20 MEQ/15 ML UDC PO ONE (08:33)
[2019-10-07 09:52] LABS: Alpha 2 Globulin (PEP) 0.74 g/dL (0.48-1.05); Beta Globulin (PEP) 0.63 g/dL (0.48-1.10)
[2019-10-07] MEDS ORDERED: 0.9 % Sodium Chloride 1,000 ML IVC SCH (10:00)
[2019-10-07 11:04] VITALS: BP 182/78
[2019-10-07 12:41] LABS: IFE Reflexed NOT DONE
[2019-10-09] MEDS ORDERED: CloNIDine Patch 0.1 MG PATCH (WEEKLY) TD SCH (16:10)
== END 2019-10-07 12:57 | disposition other institution (70) | DRG 871 ==
LOC: 2NENU 11:26 → EMEROOARM 11:26 → 2NENU 17:21 → 2ANU 10-04 21:25 → SUATTDRO 10-05 12:21
PROVIDERS: ADMIT Internal Medicine; ATTEND Internal Medicine